=== PATIENT | female | born 1930 ===

== ENCOUNTER 2016-09-30 22:32 | Inpatient (IN) | payer MEDICARE, MEDICAID ==
--- NOTE | 2016-09-30 22:59 | C.PDOC ---
History Of Present Illness Patient presents with increased generalized weakness, "i've got no strength" No f/c/n/v. Nocp or palpitations. Time Seen by Provider: 09/30/16 22:59 Chief Complaint (Nursing): Weakness/Neurological Deficit History Per: Patient History/Exam Limitations: no limitations Onset/Duration Of Symptoms: Days Current Symptoms Are (Timing): Worse Seizure Or Post-ictal Symptoms: None - Symptoms Of CVA Recent Aspirin Use: No Current Coumadin Use?: No Recent Head Trauma: No Past Medical History Reviewed: Historical Data, Nursing Documentation, Vital Signs Vital Signs: Last Vital Signs Temp 98.1 F 09/30/16 22:35 Pulse 90 09/30/16 23:33 Resp 17 09/30/16 23:33 BP 154/67 H 09/30/16 23:33 Pulse Ox 100 09/30/16 23:58 - Medical History PMH: Anemia, Arthritis, Parkinson's Disease Denies: Chronic Kidney Disease - [facility] Procedures EXCISION OF STOMACH, ENDO, DIAGN (07/07/16) Family History: States: No Known Family Hx - Social History Hx Tobacco Use: No Hx Alcohol Use: No Hx Substance Use: No - Immunization History Hx Tetanus Toxoid Vaccination: No Hx Influenza Vaccination: Yes Hx Pneumococcal Vaccination: Yes Review Of Systems Constitutional: Positive for: Malaise. Negative for: Fever, Chills ENT: Negative for: Throat Pain Cardiovascular: Negative for: Chest Pain, Palpitations Respiratory: Positive for: Shortness of Breath Gastrointestinal: Negative for: Nausea, Vomiting, Abdominal Pain Genitourinary: Negative for: Dysuria Skin: Negative for: Rash, Lesions, Jaundice, Bruising Neurological: Positive for: Weakness. Negative for: Altered Mental Status, Dizziness Psych: Negative for: Anxiety Physical Exam - Physical Exam Appears: Non-toxic, No Acute Distress Skin: Warm, Dry, Pale Eye(s): bilateral: Normal Inspection Oral Mucosa: Dry Neck: Supple Chest: Symmetrical Cardiovascular: Rhythm Regular Respiratory: No Rales, No Rhonchi, No Wheezing Gastrointestinal/Abdominal: Soft, No Tenderness, No Distention Back: Normal Inspection Extremity: Normal ROM Extremity: Bilateral: Atraumatic, Normal Color And Temperature Neurological/Psych: Oriented x3, Normal Speech, Normal Cognition Gait: Unsteady ED Course And Treatment - Laboratory Results Result Diagrams: 09/30/16 23:14 09/30/16 23:14 ECG: Interpreted By Me, Viewed By Me ECG Rhythm: Sinus Rhythm (95), 1st Degree HB, R BBB, Nonspecific Changes O2 Sat by Pulse Oximetry: 100 Pulse Ox Interpretation: Normal - Radiology CXR: Interpreted by Me, Viewed By Me CXR Interpretation: Yes: Cardiomegaly, Other (mild venous congestion unchanged from ). No: Infiltrates, Fracture, Pnemothorax Progress Note: blood work, ivf, Disposition Discussed With Dr.: Tigist Omalley Comment: accepted the pt on his service and took over the care at12:25 AM Doctor Will See Patient In The: Hospital Counseled Patient/Family Regarding: Studies Performed, Diagnosis - Disposition Disposition: HOSPITALIZED Disposition Time: 22:59 Condition: FAIR - POA Present On Arrival: Poor Glycemic Control - Clinical Impression Clinical Impression: Ambulatory dysfunction, Malaise and fatigue Decision To Admit - Pt Status Changed To: Hospital Disposition Of: Inpatient - Admit Certification Admit to Inpatient:: After my assessment, the patient will require hospitalization for at least two midnights. This is because of the severity of symptoms shown, intensity of services needed, and/or the medical risk in this patient being treated as an outpatient. - InPatient: Physician Admission Certification: I certify that this patient requires 2 or more midnights of care for the following reason:: After my assessment, the patient will require hospitalization for at least two midnights. This is because of the severity of symptoms shown, intensity of services needed, and/or the medical risk in this patient being treated as an outpatient. - . Bed Request Type: Regular Admitting Physician: Tigist Omalley Patient Diagnosis: Ambulatory dysfunction, Malaise and fatigue, Hypokalemia
[2016-09-30 23:19] LABS: BASO % 0.5 % (0.0-2.0); EOS # 0.1 K/uL (0.0-0.7); EOS % 1.7 % (0.0-4.0); HEMATOCRIT 37.6 % (34.0-47.0); LYMPH # 0.4 K/uL (1.0-4.3); LYMPH % 8.5 % (20.0-40.0); MEAN CELL VOLUME 96.8 fL (81.0-99.0); MEAN CORPUSCULAR HEMOGLOBIN 32.4 pg (27.0-31.0); MEAN CORPUSCULAR HGB CONC 33.4 g/dL (33.0-37.0); MEAN PLATELET VOLUME 8.9 fL (7.2-11.7); MONO # 0.7 K/uL (0.0-0.8); MONO % 13.1 % (0.0-10.0); PLATELET COUNT 176 K/uL (130-400); RED CELL DISTRIBUTION WIDTH 13.5 % (11.5-14.5); WHITE BLOOD COUNT 5.3 K/uL (4.8-10.8)
[2016-09-30 23:27] LABS: POTASSIUM 3.3 mmol/L (3.6-5.2)
[2016-09-30 23:29] LABS: BILIRUBIN,TOTAL 0.5 mg/dL (0.2-1.3); INR 0.9
[2016-09-30 23:30] LABS: ALB/GLOB RATIO 1.3 (1.0-2.1); CALCIUM 9.3 mg/dl (8.6-10.4); MAGNESIUM 2.2 mg/dL (1.6-2.3); TOTAL PROTEIN 7.1 g/dL (6.3-8.3)
[2016-09-30 23:51] LABS: BASOPHIL 1 % (0-2); NEUTROPHIL 77 % (50-75); TOTAL CELLS COUNTED 100
[2016-10-01 00:05] LABS: THYROID STIMULATING HORMONE 0.67 mIU/L (0.46-4.68)
[2016-10-01 00:07] LABS: RBC URINE 2 /hpf (0-3); URINE BILIRUBIN NEGATIVE (NEGATIVE); URINE BLOOD NEGATIVE (NEGATIVE); URINE COLOR Straw (YELLOW); URINE GLUCOSE (UA) NORMAL (Normal); URINE KETONE NEGATIVE (NEGATIVE); URINE LEUKOCYTE ESTERASE TRACE Leu/uL (Negative); URINE PROTEIN NEGATIVE (NEGATIVE); URINE UROBILINOGEN NORMAL mg/dL (0.2-1.0); WBC URINE 8 /hpf (0-5)
[2016-10-01] MEDS ORDERED: Potassium Chloride 10 mEq ER Tab PO STA (00:20)
[2016-10-01] MEDS ORDERED: Potassium Chloride 20 mEq ER Tab PO ONE (00:25)
[2016-10-01 08:14] VITALS: RESP 20
[2016-10-01] MEDS: Potassium Chloride 20 mEq ER Tab PO SCH ×2 (08:19→11:02)
--- NOTE | 2016-10-01 09:16 | RAD ---
PROCEDURE: CHEST RADIOGRAPH, 1 VIEW HISTORY: SOB COMPARISON: 07/07/2016 FINDINGS: LUNGS: Moderate venous congestion with bibasilar airspace opacities and a suggestion of small bilateral pleural effusions. PLEURA: As above. CARDIOVASCULAR: Cardiomegaly. Calcification at the aortic knob. OSSEOUS STRUCTURES: Degenerative changes in the spine and shoulders. VISUALIZED UPPER ABDOMEN: Normal. OTHER FINDINGS: None. IMPRESSION: Moderate venous congestion with bibasilar airspace opacities and a suggestion of small bilateral pleural effusions.
[2016-10-01] MEDS: Enoxaparin 30 mg Syringe SC SCH (10:59)
[2016-10-01] MEDS: PrednisoLONE 1% Opht Susp(5 ml) OD SCH ×2 (11:00→17:47)
[2016-10-01] MEDS: hydroCHLOROthiazide-Triamterene 25 mg-37.5 mg Cap UD PO SCH (11:00)
[2016-10-01] MEDS: cefTRIAXone IV 1 gm in Dextros 50 ML IVPB SCH (11:01)
[2016-10-01] MEDS: Pantoprazole 40 mg EC Tab PO SCH (11:01)
--- NOTE | 2016-10-01 14:51 | CP.PCM.HP ---
History of Present Illness - History of Present Illness History of Present Illness: 86-year-old female patient with past medical history of Parkinson disease, anemia, arthritis presented to the ED with complaint of increased generalized weakness. She states "I got no strength". Denies fever, chills, nausea, vomiting, chest pain, palpitation Present on Admission - Present on Admission Any Indicators Present on Admission: No Past Patient History - Past Medical History & Family History Past Medical History?: Yes - Past Social History Smoking Status: Never Smoked - CARDIAC Hx Cardiac Disorders: Yes Hx Hypertension: Yes - PULMONARY Hx Respiratory Disorders: No - NEUROLOGICAL Hx Neurological Disorder: Yes Hx Parkinson's Disease: Yes - HEENT Hx HEENT Problems: Yes Hx Cataracts: Yes Hx Glaucoma: Yes Other/Comment: cornea transplant - RENAL Hx Chronic Kidney Disease: No - ENDOCRINE/METABOLIC Hx Endocrine Disorders: No - HEMATOLOGICAL/ONCOLOGICAL Hx Blood Disorders: Yes Hx Anemia: Yes - INTEGUMENTARY Hx Dermatological Problems: No - MUSCULOSKELETAL/RHEUMATOLOGICAL Hx Arthritis: Yes - GASTROINTESTINAL Hx Gastrointestinal Disorders: No - GENITOURINARY/GYNECOLOGICAL Hx Genitourinary Disorders: No - PSYCHIATRIC Hx Psychophysiologic Disorder: No Hx Substance Use: No - SURGICAL HISTORY Hx Surgeries: Yes Hx Femoral-Popliteal Bypass Graft: Yes (corneal transplant) - ANESTHESIA Hx Anesthesia: No Hx Anesthesia Reactions: No Hx Malignant Hyperthermia: No Has any member of the family had a problem w/ anesthesia?: No Meds Home Medications: Home Medication List Medication Instructions Recorded Confirmed Type Carbidopa/Levodopa 25/100 mg 1 tab PO Q8 tab 10/04/16 Rx [Sinemet] Pantoprazole [Protonix EC Tab] 40 mg PO DAILY ect 10/04/16 Rx Allergies/Adverse Reactions: Allergies Allergy/AdvReac Type Severity Reaction Status Date / Time No Known Allergies Allergy Unverified 07/07/16 01:03 Physical Exam - Constitutional Appears: Well - Head Exam Head Exam: ATRAUMATIC, NORMAL INSPECTION, NORMOCEPHALIC - Eye Exam Eye Exam: EOMI, Normal appearance, PERRL Pupil Exam: NORMAL ACCOMODATION, PERRL - ENT Exam ENT Exam: Mucous Membranes Moist, Normal Exam - Neck Exam Neck exam: Positive for: Normal Inspection - Respiratory Exam Respiratory Exam: Decreased Breath Sounds - Cardiovascular Exam Cardiovascular Exam: REGULAR RHYTHM, +S1, +S2 - GI/Abdominal Exam GI & Abdominal Exam: Diminished Bowel Sounds, Soft - Rectal Exam Rectal Exam: Deferred Results - Vital Signs Recent Vital Signs: Last Vital Signs Temp 98.3 F 10/01/16 08:13 Pulse 80 10/01/16 08:57 Resp 20 10/01/16 08:13 BP 143/75 10/01/16 08:13 Pulse Ox 97 10/01/16 08:13 - Labs Result Diagrams: 10/04/16 15:37 10/04/16 15:37 Assessment & Plan (1) Ambulatory dysfunction Status: Acute (2) Aortic stenosis Status: Acute (3) Gastric ulcer Status: Acute (4) Hypokalemia Status: Acute (5) Malaise and fatigue Status: Acute (6) Severe anemia Status: Acute (7) Hypertension Status: Chronic (8) Parkinson disease Status: Chronic - Assessment and Plan (Free Text) Plan: Consult neurology CT head normal Lovenox Rocephin Sinemet Imdur Protonix Prednisone
[2016-10-01] MEDS ORDERED: Potassium Chloride 20 mEq ER Tab PO STA (15:34)
[2016-10-01] MEDS ORDERED: Latanoprost 2.5 ml Opht Soln OS SCH (22:00)
[2016-10-01] MEDS: Latanoprost 2.5 ml Opht Soln OS SCH (22:44)
[2016-10-02] MEDS: Enoxaparin 30 mg Syringe SC SCH (10:21)
[2016-10-02] MEDS: hydroCHLOROthiazide-Triamterene 25 mg-37.5 mg Cap UD PO SCH (10:21)
[2016-10-02] MEDS: Pantoprazole 40 mg EC Tab PO SCH (10:21)
[2016-10-02] MEDS: cefTRIAXone IV 1 gm in Dextros 50 ML IVPB SCH (10:22)
--- NOTE | 2016-10-02 10:27 | CT ---
PROCEDURE: CT HEAD WITHOUT CONTRAST. HISTORY: weakness COMPARISON: None available. TECHNIQUE: Axial computed tomography images were obtained through the head/brain without intravenous contrast. Radiation dose: Total exam DLP = 947 mGy-cm. This CT exam was performed using one or more of the following dose reduction techniques: Automated exposure control, adjustment of the mA and/or kV according to patient size, and/or use of iterative reconstruction technique. FINDINGS: HEMORRHAGE: No intracranial hemorrhage. BRAIN: No mass effect or edema. Atrophy most prominent in the prefrontal and cerebellar regions. Bilateral basal ganglia calcifications. Calcified choroid plexus. VENTRICLES: Unremarkable. No hydrocephalus. CALVARIUM: Unremarkable. PARANASAL SINUSES: Unremarkable as visualized. No significant inflammatory changes. MASTOID AIR CELLS: Unremarkable as visualized. No inflammatory changes. OTHER FINDINGS: Intracranial arterial atherosclerotic calcification. IMPRESSION: Atrophy most prominent in the prefrontal and cerebellar regions. Intracranial arterial atherosclerotic calcification. If focal neurologic deficit persists, consider MRI.
[2016-10-02] MEDS: PrednisoLONE 1% Opht Susp(5 ml) OD SCH ×2 (11:06→17:28)
--- NOTE | 2016-10-02 15:26 | CP.PCM.PN ---
Subjective - Date & Time of Evaluation Date of Evaluation: 10/02/16 Time of Evaluation: 15:00 - Subjective Subjective: Pt. has generalised weakness Objective - Vital Signs/Intake and Output Vital Signs (last 24 hours): Temp Pulse Resp BP Pulse Ox 97.9 F 78 20 160/68 H 95 10/02/16 08:37 10/02/16 10:57 10/02/16 08:37 10/02/16 08:37 10/02/16 08:37 Intake and Output: 10/02/16 10/02/16 06:59 18:59 Intake Total 250 Balance 250 - Medications Medications: Current Medications Carbidopa/Levodopa (Sinemet) 1 tab PO Q8 [facility] Last Admin: 10/02/16 06:23 Dose: 1 tab Enoxaparin Sodium (Lovenox) 30 mg SC DAILY [facility] Last Admin: 10/02/16 10:21 Dose: 30 mg Ceftriaxone Sodium (Rocephin Iv 1 Gm Duplex) 50 mls @ 100 mls/hr IVPB DAILY [facility] Last Admin: 10/02/16 10:22 Dose: 100 mls/hr Isosorbide Mononitrate (Imdur) 60 mg PO DAILY [facility] Last Admin: 10/02/16 10:21 Dose: 60 mg Latanoprost (Xalatan Opht) 0 ml OS HS [facility] Last Admin: 10/01/16 22:44 Dose: 2.5 ml Pantoprazole Sodium (Protonix Ec Tab) 40 mg PO DAILY [facility] Last Admin: 10/02/16 10:21 Dose: 40 mg Prednisolone Acetate (Pred Forte 1% Opht Susp) 1 ml OD BID [facility] Last Admin: 10/02/16 11:06 Dose: 1 drop Triamterene/HCTZ (Dyazide 25 Mg-37.5 Mg) 1 cap PO DAILY [facility] Last Admin: 10/02/16 10:21 Dose: 1 cap - Labs Labs: PT 10.4 SECONDS (9.7-12.2) 09/30/16 23:14 INR 0.9 09/30/16 23:14 APTT 35 SECONDS (21-34) H 09/30/16 23:14 - Constitutional Appears: Well - Head Exam Head Exam: ATRAUMATIC, NORMAL INSPECTION, NORMOCEPHALIC - Eye Exam Eye Exam: EOMI, Normal appearance, PERRL Pupil Exam: NORMAL ACCOMODATION, PERRL - ENT Exam ENT Exam: Mucous Membranes Moist, Normal Exam - Neck Exam Neck Exam: Full ROM, Normal Inspection. absent: Lymphadenopathy - Respiratory Exam Respiratory Exam: Decreased Breath Sounds - Cardiovascular Exam Cardiovascular Exam: REGULAR RHYTHM, +S1, +S2 - GI/Abdominal Exam GI & Abdominal Exam: Soft, Diminished Bowel Sounds - Rectal Exam Rectal Exam: Deferred Assessment and Plan - Assessment and Plan (Free Text) Plan: Current meds: arbidopa/Levodopa Enoxaparin Ceftriaxone Isosorbide Mononitrate Latanoprost Pantoprazole Prednisolone Triamterene/HCTZ f/u labs Ct head normal
[2016-10-02] MEDS: Latanoprost 2.5 ml Opht Soln OS SCH (21:33)
[2016-10-02] MEDS ORDERED: Latanoprost 2.5 ml Opht Soln OS SCH (22:00)
--- NOTE | 2016-10-03 09:44 | CON ---
DATE: 10/01/2016 ATTENDING PHYSICIAN: Dr. Omalley. REASON FOR CONSULTATION: Generalized weakness. 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 The patient has been on Sinemet for some time. The patient is complaining of generalized weakness and fatigue, difficulty ambulating and tendency to fall. The patient stated that "I feel dizzy when I walk and look down. I feel that the floor is moving and having tendency to fall," although the patient tried to hold up to the wall or chairs when walking. No falls recently. The patient denies bradykinesia, dyskinesia, freezing, no taste or smell abnormalities. No restless leg syndrome. 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 The patient has also tremors of the right side, mostly resting and postural, mild not severe. PAST MEDICAL HISTORY: As mentioned above. SOCIAL HISTORY: Nonsmoker or ethanol abuser. ALLERGIES: No known allergic reaction to medications. MEDICATIONS: Triamterene, isosorbide, prednisone ophthalmic, pantoprazole, ceftriaxone, carbidopa/levodopa. MENTAL STATUS: The patient is alert, awake, oriented x 3. Normal naming, repetition and comprehension. No agnosia. No apraxia. No right to left confusion. PHYSICAL EXAMINATION: VITAL SIGNS: Blood pressure 154/67, pulse 90, respirations 17, temperature 98.1. REVIEW OF SYSTEMS: As per H and P and ER notes reviewed. CRANIAL NERVES: Pupil deformed on the right side secondary to right lens implant. 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 No facial asymmetry. There is a questionable left hemianopsia in the right eye; it is questionable. No agnosia. No apraxia. No right or left confusion. No finger agnosia. MOTOR: Increased tone on the right upper more than the left. Positive mild cogwheel rigidity on the right side. Impaired fine finger movement, finger tapping on the right side. Alternative movement slightly impaired on the right side. Feet tapping intact, symmetrical. Upper extremity, deltoid, elbow neon light installer overall 5-/5, slightly weaker at the right; neon light installer 4+/5. Lower extremities, bilateral hip flexion 5-/5, knee flexion and extension and ankle dorsiflexion, plantar extension 5-/5. SENSORY: Increased pinprick and light touch distally below mid legs with hyperpigmentation of the distal lower extremities bilaterally, probably secondary to peripheral vascular disease. IMAGING: CAT scan of the brain not done. LABORATORY DATA: Reviewed. White blood cells 5.3, red blood cells 3.88. MCV 96, platelets 176. Sodium 137, potassium 3.3, chloride 93, carbon dioxide 27, anion gap 20, BUN 21, creatinine 1.2. Sedimentation 43. Urinary tract infection: Urine white blood cells 8, epithelials 5, trace. IMPRESSION: 1. Generalized weakness and fatigue, could be secondary to urosepsis and dehydration. 2. Parkinson disease. 3. Distal symmetrical sensory neuropathy secondary to peripheral vascular disease. 4. Probable positional vertigo versus vertebrobasilar insufficiency. The patient is complaining of dizziness and unsteadiness and vertigo while bending the head. PLAN: 1. CAT scan of the brain without contrast. Continue Sinemet at this point. 2. Physical therapy, subacute rehabilitation. 3. I have strongly recommended the patient to do exercise at home as instructed personally on a regular basis for her Parkinson's and do fine finger movement on a regular basis. Neuro-ramos, no further workup except for the CAT scan, and otherwise, the patient can be followed up by Dr. Briggs as an outpatient after discharge. Thank you for the consultation and I will sign off the case. If needed, I can be called or Dr. Briggs on Monday. Thank you for the referral. Wesley Cunha MD cc: [id number] TT: 10/01/2016 19:37:15 Confirmation # [id number] Dictation # [id number] beto GALAN
[2016-10-03] MEDS: Pantoprazole 40 mg EC Tab PO SCH (09:58)
[2016-10-03] MEDS: hydroCHLOROthiazide-Triamterene 25 mg-37.5 mg Cap UD PO SCH (09:58)
[2016-10-03] MEDS: Enoxaparin 30 mg Syringe SC SCH (09:58)
[2016-10-03] MEDS: PrednisoLONE 1% Opht Susp(5 ml) OD SCH ×2 (09:59→17:37)
[2016-10-03] MEDS: cefTRIAXone IV 1 gm in Dextros 50 ML IVPB SCH (10:01)
--- NOTE | 2016-10-03 18:41 | CP.PCM.PN ---
Subjective - Date & Time of Evaluation Date of Evaluation: 10/03/16 Time of Evaluation: 11:00 - Subjective Subjective: clinically same Objective - Vital Signs/Intake and Output Vital Signs (last 24 hours): Temp Pulse Resp BP Pulse Ox 98.4 F 80 20 133/71 95 10/03/16 16:00 10/03/16 16:00 10/03/16 16:00 10/03/16 16:00 10/03/16 16:00 Intake and Output: 10/03/16 10/03/16 06:59 18:59 Intake Total 680 Balance 680 - Medications Medications: Current Medications Carbidopa/Levodopa (Sinemet) 1 tab PO Q8 [facility] Last Admin: 10/03/16 16:36 Dose: 1 tab Enoxaparin Sodium (Lovenox) 30 mg SC DAILY [facility] Last Admin: 10/03/16 09:58 Dose: 30 mg Ceftriaxone Sodium (Rocephin Iv 1 Gm Duplex) 50 mls @ 100 mls/hr IVPB DAILY [facility] Last Admin: 10/03/16 10:01 Dose: 100 mls/hr Isosorbide Mononitrate (Imdur) 60 mg PO DAILY [facility] Last Admin: 10/03/16 09:57 Dose: 60 mg Latanoprost (Xalatan Opht) 0 ml OS HS [facility] Last Admin: 10/02/16 21:33 Dose: 2.5 ml Pantoprazole Sodium (Protonix Ec Tab) 40 mg PO DAILY [facility] Last Admin: 10/03/16 09:58 Dose: 40 mg Prednisolone Acetate (Pred Forte 1% Opht Susp) 1 ml OD BID [facility] Last Admin: 10/03/16 17:37 Dose: 1 drop Triamterene/HCTZ (Dyazide 25 Mg-37.5 Mg) 1 cap PO DAILY [facility] Last Admin: 10/03/16 09:58 Dose: 1 cap - Labs Labs: PT 10.4 SECONDS (9.7-12.2) 09/30/16 23:14 INR 0.9 09/30/16 23:14 APTT 35 SECONDS (21-34) H 09/30/16 23:14 - Constitutional Appears: Well - Head Exam Head Exam: ATRAUMATIC, NORMAL INSPECTION, NORMOCEPHALIC - Eye Exam Eye Exam: EOMI, Normal appearance, PERRL Pupil Exam: NORMAL ACCOMODATION, PERRL - ENT Exam ENT Exam: Mucous Membranes Moist, Normal Exam - Neck Exam Neck Exam: Full ROM, Normal Inspection. absent: Lymphadenopathy - Respiratory Exam Respiratory Exam: Decreased Breath Sounds - Cardiovascular Exam Cardiovascular Exam: REGULAR RHYTHM, +S1, +S2 - GI/Abdominal Exam GI & Abdominal Exam: Soft, Diminished Bowel Sounds - Rectal Exam Rectal Exam: Deferred Assessment and Plan - Assessment and Plan (Free Text) Plan: neurologically stable to discharge pt is reluctant to go to [facility] may need and also collin by pt ot kael[facility] sme labs result sdiscusse diwth pt
[2016-10-03] MEDS: Latanoprost 2.5 ml Opht Soln OS SCH (21:36)
[2016-10-04] MEDS: Pantoprazole 40 mg EC Tab PO SCH (09:34)
[2016-10-04] MEDS: Enoxaparin 30 mg Syringe SC SCH (09:34)
[2016-10-04] MEDS: hydroCHLOROthiazide-Triamterene 25 mg-37.5 mg Cap UD PO SCH (09:36)
[2016-10-04] MEDS: PrednisoLONE 1% Opht Susp(5 ml) OD SCH (09:37)
[2016-10-04] MEDS: cefTRIAXone IV 1 gm in Dextros 50 ML IVPB SCH (09:39)
--- NOTE | 2016-10-04 10:11 | CP.PCM.PN ---
Subjective - Date & Time of Evaluation Date of Evaluation: 10/04/16 Time of Evaluation: 10:40 - Subjective Subjective: clinically stable Objective - Vital Signs/Intake and Output Vital Signs (last 24 hours): Temp Pulse Resp BP Pulse Ox 97.9 F 74 20 138/72 94 L 10/04/16 08:00 10/04/16 08:47 10/04/16 08:00 10/04/16 08:00 10/04/16 08:00 Intake and Output: 10/04/16 10/04/16 06:59 18:59 Intake Total 350 Output Total 450 Balance -100 - Medications Medications: Current Medications Carbidopa/Levodopa (Sinemet) 1 tab PO Q8 [facility] Last Admin: 10/04/16 06:21 Dose: 1 tab Enoxaparin Sodium (Lovenox) 30 mg SC DAILY [facility] Last Admin: 10/04/16 09:34 Dose: 30 mg Ceftriaxone Sodium (Rocephin Iv 1 Gm Duplex) 50 mls @ 100 mls/hr IVPB DAILY [facility] Last Admin: 10/04/16 09:39 Dose: 100 mls/hr Isosorbide Mononitrate (Imdur) 60 mg PO DAILY [facility] Last Admin: 10/04/16 09:34 Dose: 60 mg Latanoprost (Xalatan Opht) 0 ml OS HS [facility] Last Admin: 10/03/16 21:36 Dose: 2.5 ml Pantoprazole Sodium (Protonix Ec Tab) 40 mg PO DAILY [facility] Last Admin: 10/04/16 09:34 Dose: 40 mg Prednisolone Acetate (Pred Forte 1% Opht Susp) 1 ml OD BID [facility] Last Admin: 10/04/16 09:37 Dose: 1 drop Triamterene/HCTZ (Dyazide 25 Mg-37.5 Mg) 1 cap PO DAILY [facility] Last Admin: 10/04/16 09:36 Dose: 1 cap - Labs Labs: PT 10.4 SECONDS (9.7-12.2) 09/30/16 23:14 INR 0.9 09/30/16 23:14 APTT 35 SECONDS (21-34) H 09/30/16 23:14 - Constitutional Appears: Well - Head Exam Head Exam: ATRAUMATIC, NORMAL INSPECTION, NORMOCEPHALIC - Eye Exam Eye Exam: EOMI, Normal appearance, PERRL Pupil Exam: NORMAL ACCOMODATION, PERRL - ENT Exam ENT Exam: Mucous Membranes Moist, Normal Exam - Neck Exam Neck Exam: Full ROM, Normal Inspection. absent: Lymphadenopathy - Respiratory Exam Respiratory Exam: Decreased Breath Sounds - Cardiovascular Exam Cardiovascular Exam: REGULAR RHYTHM, +S1, +S2 - GI/Abdominal Exam GI & Abdominal Exam: Soft, Diminished Bowel Sounds - Rectal Exam Rectal Exam: Deferred Assessment and Plan - Assessment and Plan (Free Text) Plan: continue meds as ordered pt is stable and ready for discharge to [facility] for rehab I will follow pt. over there
--- NOTE | 2016-10-04 15:30 | CP.PCM.PN ---
Subjective - Date & Time of Evaluation Date of Evaluation: 10/04/16 Time of Evaluation: 15:00 - Subjective Subjective: DIRECTOR [employer] NOTES Pt seen today with Dr. Olivia villeda, states feels better, denies any chest pain , sob , N/V/D , c/o le weakness 86 yr old female admitted for LE weakness/ UTI/ hypokalemia labs- today WNL- EXCEPT K- 3.5- replaced today Pt accepted at [facility] for rehab As per Dr. Olivia villeda , stable for discharge to [facility] today and Dr. Olivia villeda will follow the pt [facility] Discharge plan discussed with pateint and daughter at bedside , who understands and agrees with plan Objective - Vital Signs/Intake and Output Vital Signs (last 24 hours): Temp Pulse Resp BP Pulse Ox 97.9 F 74 20 138/72 94 L 10/04/16 08:00 10/04/16 08:47 10/04/16 08:00 10/04/16 08:00 10/04/16 08:00 Intake and Output: 10/04/16 10/04/16 06:59 18:59 Intake Total 350 Output Total 450 Balance -100 - Medications Medications: Current Medications Carbidopa/Levodopa (Sinemet) 1 tab PO Q8 [facility] Last Admin: 10/04/16 14:15 Dose: 1 tab Enoxaparin Sodium (Lovenox) 30 mg SC DAILY [facility] Last Admin: 10/04/16 09:34 Dose: 30 mg Ceftriaxone Sodium (Rocephin Iv 1 Gm Duplex) 50 mls @ 100 mls/hr IVPB DAILY [facility] Last Admin: 10/04/16 09:39 Dose: 100 mls/hr Isosorbide Mononitrate (Imdur) 60 mg PO DAILY [facility] Last Admin: 10/04/16 09:34 Dose: 60 mg Latanoprost (Xalatan Opht) 0 ml OS HS [facility] Last Admin: 10/03/16 21:36 Dose: 2.5 ml Pantoprazole Sodium (Protonix Ec Tab) 40 mg PO DAILY [facility] Last Admin: 10/04/16 09:34 Dose: 40 mg Prednisolone Acetate (Pred Forte 1% Opht Susp) 1 ml OD BID [facility] Last Admin: 10/04/16 09:37 Dose: 1 drop Triamterene/HCTZ (Dyazide 25 Mg-37.5 Mg) 1 cap PO DAILY [facility] Last Admin: 10/04/16 09:36 Dose: 1 cap - Labs Labs: PT 10.4 SECONDS (9.7-12.2) 09/30/16 23:14 INR 0.9 09/30/16 23:14 APTT 35 SECONDS (21-34) H 09/30/16 23:14
[2016-10-04 15:46] LABS: BASO % 0.6 % (0.0-2.0); EOS # 0.1 K/uL (0.0-0.7); EOS % 1.6 % (0.0-4.0); HEMATOCRIT 42.7 % (34.0-47.0); LYMPH # 0.4 K/uL (1.0-4.3); LYMPH % 7.6 % (20.0-40.0); MEAN CELL VOLUME 96.5 fL (81.0-99.0); MEAN CORPUSCULAR HEMOGLOBIN 32.3 pg (27.0-31.0); MEAN CORPUSCULAR HGB CONC 33.5 g/dL (33.0-37.0); MEAN PLATELET VOLUME 8.7 fL (7.2-11.7); MONO # 0.5 K/uL (0.0-0.8); MONO % 10.5 % (0.0-10.0); PLATELET COUNT 196 K/uL (130-400); RED CELL DISTRIBUTION WIDTH 13.7 % (11.5-14.5)
[2016-10-04 15:51] LABS: POTASSIUM 3.5 mmol/L (3.6-5.2)
[2016-10-04 15:54] LABS: CALCIUM 9.5 mg/dl (8.6-10.4)
[2016-10-04 16:06] VITALS: BP 125/71; PULSE 83; TEMP 97.8; O2SAT 98
[2016-10-04] MEDS ORDERED: Potassium Chloride 20 mEq ER Tab PO STA (16:17)
[2016-10-04 17:21] LABS: EOSINOPHIL 2 % (0-4); NEUTROPHIL 76 % (50-75); TOTAL CELLS COUNTED 100
[2016-10-04 17:22] LABS: LARGE PLATELETS PRESENT
--- NOTE | 2016-10-05 14:04 | CARD ---
APPROVED REPORT EKG Measurement Heart [id number] <Conclusion> Sinus rhythm with 1st degree AV block Right bundle branch block Abnormal ECG
== END 2016-10-04 17:20 | DRG 641 ==
LOC: C.ER 22:32 → C.9E 10-01 00:27 → C.3T 10-01 01:17 → OBSVTOIN 10-01 12:02
PROVIDERS: ADMIT Internal Medicine Nephrology; ATTEND Internal Medicine Nephrology
DX: E86.0 Dehydration (principal); G20 Parkinson's disease; N39.0 Urinary tract infection, site not specified; G62.9 Polyneuropathy, unspecified; R53.1 Weakness; E87.6 Hypokalemia; I10 Essential (primary) hypertension; R53.81 Other malaise; M19.90 Unspecified osteoarthritis, unspecified site; R42 Dizziness and giddiness; I73.9 Peripheral vascular disease, unspecified; Z94.7 Corneal transplant status